=== PATIENT | female | born 1980 | race Caucasian/White ===

== ENCOUNTER 2022-07-09 14:01 | Emergency (ER) | payer BC ==
[2022-07-09 15:09] LABS: SARS-CoV-2 NAA Rapid Test Not Detected (NotDetected)
== END 2022-07-09 15:17 | disposition home or self-care (01) ==
LOC: CSHERS 14:01
DX: T18.128A Food in esophagus causing other injury, initial encounter (principal); Z20.822 Contact with and (suspected) exposure to COVID-19
CPT/HCPCS: 99283; U0002